=== PATIENT | female | born 1930 | race Two or more races ===

== ENCOUNTER 2017-05-06 12:10 | Outpatient (CLI) | payer MEDICARE, MEDICAID ==
[2017-05-06 12:34] LABS: BASOPHILS # (AUTO) 0.1 /CMM (0.0-0.2); BASOPHILS % (AUTO) 0.7 % (0.0-2.0); EOSINOPHILS # (AUTO) 0.1 /CMM (0.0-0.7); EOSINOPHILS % (AUTO) 1.1 % (0.0-6.0); HEMATOCRIT 38 % (33-45); HEMOGLOBIN 12.4 g/dL (11.5-14.8); LYMPHOCYTES % (AUTO) 37.1 % (20.0-44.0); MEAN CORPUSCULAR HEMOGLOBIN 29 PG (26.0-33.0); MEAN CORPUSCULAR HGB CONC 33 g/dl (31.0-36.0); MEAN CORPUSCULAR VOLUME 87 fL (82-100); MONOCYTES # (AUTO) 0.9 /CMM (0.1-1.30); NEUTROPHILS # (AUTO) 5.7 /CMM (1.8-8.9); NEUTROPHILS % (AUTO) 53.1 % (43.0-81.0); PLATELET COUNT (AUTO) 358 /CMM (150-450); RDW COEFFICIENT OF VARIATION 15.8 (11.5-15.0); RED BLOOD CELL COUNT(AUTO) 4.36 MIL/uL (4.0-5.2); WHITE BLOOD COUNT (AUTO) 10.8 K/uL (4.3-11.0)
[2017-05-06 13:02] LABS: ALANINE AMINOTRANSFERASE 30 U/L (12-78); ALBUMIN 3.5 g/dL (3.4-5.0); ALKALINE PHOSPHATASE 77 U/L (46-116); ASPARTATE AMINOTRANSFERASE 31 U/L (15-37); BILIRUBIN,TOTAL 0.3 mg/dL (0.2-1.0); CALCIUM, SERUM 9.3 mg/dL (8.5-10.1); CARBON DIOXIDE 29 mmol/L (21-32); CHLORIDE 103 mmol/L (98-107); CREATININE 1.2 mg/dL (0.6-1.3); GLUCOSE 102 mg/dL (74-106); POTASSIUM 4.4 mmol/L (3.5-5.1); SODIUM SERUM 140 mmol/L (136-145); TOTAL PROTEIN, SERUM 7.9 g/dL (6.4-8.2); UREA NITROGEN, BLOOD 21 mg/dL (7-18)
[2017-05-06 13:10] LABS: THYROID STIMULATING HORMONE 2.974 uIU/mL (0.358-3.74)
== END 2017-05-06 23:59 | disposition home or self-care (01) ==
LOC: LAB 12:10
PROVIDERS: ATTEND Internal Medicine Cardiovascular Disease
DX: I11.0 Hypertensive heart disease with heart failure (principal); I50.9 Heart failure, unspecified; R53.83 Other fatigue
CPT/HCPCS: 36415; 80053-TC; 84443-TC; 85025-TC

== ENCOUNTER 2017-06-26 11:14 | Outpatient (CLI) | payer MEDICARE, MEDICAID | END 2017-06-26 23:59 | disposition home or self-care (01) | LOC: RAD 11:14 | PROVIDERS: ATTEND Family Medicine | DX: I70.0 Atherosclerosis of aorta (principal); R91.8 Other nonspecific abnormal finding of lung field; M47.894 Other spondylosis, thoracic region; K44.9 Diaphragmatic hernia without obstruction or gangrene | CPT/HCPCS: 71020-TC ==

== ENCOUNTER 2017-07-24 08:49 | Outpatient (CLI) | payer MEDICARE, MEDICAID | END 2017-07-24 23:59 | disposition home or self-care (01) | LOC: CT 08:49 | PROVIDERS: ATTEND Family Medicine | DX: J47.9 Bronchiectasis, uncomplicated (principal); R59.0 Localized enlarged lymph nodes; K44.9 Diaphragmatic hernia without obstruction or gangrene; J18.9 Pneumonia, unspecified organism; I70.0 Atherosclerosis of aorta; M77.8 Other enthesopathies, not elsewhere classified | CPT/HCPCS: 71250-TC ==

== ENCOUNTER 2018-02-18 14:44 | Outpatient (CLI) | payer MEDICARE, MEDICAID | END 2018-02-18 23:59 | disposition home or self-care (01) | LOC: RAD 14:44 | PROVIDERS: ATTEND Family Medicine | DX: M19.041 Primary osteoarthritis, right hand (principal) | CPT/HCPCS: 73140-TC ==

== ENCOUNTER 2018-05-19 10:38 | Outpatient (CLI) | payer MEDICARE, MEDICAID | END 2018-05-19 23:59 | disposition home or self-care (01) | LOC: RAD 10:38 | PROVIDERS: ATTEND Family Medicine | DX: M17.0 Bilateral primary osteoarthritis of knee (principal) | CPT/HCPCS: 73562 ==

== ENCOUNTER 2020-07-27 08:57 | Outpatient (CLI) | payer MEDICARE, MEDICAID | END 2020-07-27 23:59 | disposition home or self-care (01) | LOC: CT 08:57 | PROVIDERS: ATTEND Family Medicine | DX: J84.9 Interstitial pulmonary disease, unspecified (principal); K44.9 Diaphragmatic hernia without obstruction or gangrene; M25.78 Osteophyte, vertebrae; I70.0 Atherosclerosis of aorta | CPT/HCPCS: 71250-TC ==